=== PATIENT | female | born 1985 | race Caucasian/White ===

== ENCOUNTER 2020-12-11 08:47 | Emergency (ER) | payer SELFPAY ==
[~2020-12-11] VITALS: Ht 162.6 cm; Wt 59.5 kg
[2020-12-11 08:58] VITALS: BP 111/72
--- NOTE | 2020-12-11 09:12 | PHYS DOC ---
Past Medical History Past Medical History: Other Additional Past Medical Histor: PERIDONTAL DISEASE Past Surgical History: No Surgical History Smoking Status: Current Every Day Smoker Alcohol Use: Heavy Drug Use: Methamphetamine General Adult EDM: Chief Complaint: Drug Abuse HPI: HPI: Patient is a 35 year old female who was brought in by EMS after she was found sleeping outside a [facility] in [place], [place]. Patient did not have shoes or a ride and had no memory of how she got there. EMS reported patient she was alert and oriented X 1. Patient requested to be transported to [facility] for evaluation. Patient reports smoking methamphetamines yesterday and denies IV drug use. Upon arrival in the ED patient is alert and oriented x 3 and has no complaints. Patient denies chest pain, SOB, nausea or vomiting. Patient reports no trauma and has no focal deficits. Patient says she has never sought treatment for her methamphetamine addiction and currently is not interested in seeking treatment. Denies . Review of Systems: Review of Systems: Constitutional: Denies fever or chills Eyes: Denies redness or eye pain HENT: Denies nasal congestion or sore throat Respiratory: Denies cough or shortness of breath Cardiovascular: Denies chest pain or palpitations GI: Denies abdominal pain, nausea, or vomiting : Denies dysuria or hematuria Musculoskeletal: Denies back pain or joint pain Integument: Denies rash or skin lesions Neurologic: Denies headache, focal weakness or sensory changes Complete systems were reviewed and found to be within normal limits, except as documented in this note. Heart Score: C/O Chest Pain: N/A Allergies: Allergies: Allergies Coded Allergies Type Severity Reaction Last Updated Verified Penicillins Allergy Intermediate 07/08/15 Yes Physical Exam: PE: Constitutional: Well developed, well nourished, no acute distress, non-toxic appearance HENT: Normocephalic, atraumatic Eyes: EOMI, conjunctiva normal, no discharge Neck: Normal range of motion, no tenderness, supple Lungs & Thorax: No respiratory distress, equal chest rise and fall Abdomen: Soft, no tenderness Skin: Warm, dry, no erythema, no rash Extremities: No tenderness, ROM intact, no edema Neurologic: Alert and oriented X 3, normal motor function, normal sensory function, no focal deficits noted Psychologic: Affect normal, judgment normal Current Patient Data: Vital Signs: Vital Signs Date Time Temp Pulse Resp B/P (MAP) Pulse Ox O2 Delivery O2 Flow Rate FiO2 12/11/20 08:58 71 18 111/72 (75) 100 Room Air EKG: EKG: [] Radiology/Procedures: Radiology/Procedures: [] Course & Med Decision Making: Course & Med Decision Making Patient is a 35 year old female brought in by EMS after she was found outside a [facility] with no memory of how she got there. She reports using meth last night. Patient was A&O x 1 when examined by EMS and requested to be brought to [facility]. In the ED patient is A&O x 3. Patient reports no deficits and has no physical complaints. Patient denies seeking treatment for meth addiction and currently not seeking treatment. Patient counseled on treatment options and given information on resources available. Patient stable for discharge with outpatient follow-up with PCP/Drug rehab. Discussed findings and plan with patient, who acknowledges understanding and agreement. Patient able to walk with steady gait. Dragon Disclaimer: Lukas Disclaimer: This electronic medical record was generated, in whole or in part, using a voice recognition dictation system. Departure Departure Impression: Primary Impression: Methamphetamine abuse Disposition: 01 HOME / SELF CARE / HOMELESS Condition: STABLE Referrals: NO PCP (PCP) Patient Instructions: Alcohol and Drug Addiction, Finding Treatment, Methamphetamine Abuse, Complications Additional Instructions: Please call [facility] at to seek help for your mental health and/or drug/alcohol abuse. BETTINA GUERRERO DO Dec 11, 2020 09:12
== END 2020-12-11 09:25 | disposition home or self-care (01) ==
LOC: ER 08:47
DX: F15.10 Other stimulant abuse, uncomplicated (principal); F10.20 Alcohol dependence, uncomplicated; Y90.9 Presence of alcohol in blood, level not specified; F17.200 Nicotine dependence, unspecified, uncomplicated; Z88.0 Allergy status to penicillin
CPT/HCPCS: 99283

== ENCOUNTER 2021-09-12 08:29 | Emergency (ER) | payer MEDICAID ==
[~2021-09-12] VITALS: Ht 160 cm; Wt 65.0 kg
[2021-09-12] MEDS ORDERED: MULTIVIT INFUSN,ADULT 4,VIT K 10 ML, THIAMINE INJ 100 MG, FOLIC ACID INJ 1 MG in IV NOR... IV ONE (09:00)
[2021-09-12 09:13] LABS: BASO # 0.1 x10^3/uL (0.0-0.2); BASO % 1 % (0-3); EOS % 0 % (0-3); HEMATOCRIT 40.2 % (36.0-47.0); HEMOGLOBIN 13.3 g/dL (12.0-15.5); LYMPH # 1.8 x10^3/uL (1.0-4.8); LYMPH % 11 % (24-48); MEAN CORPUSCULAR HEMOGLOBIN 27 pg (25-35); MEAN CORPUSCULAR HGB CONC 33 g/dL (31-37); MEAN CORPUSCULAR VOLUME 82 fL (79-100); MONO # 0.9 x10^3/uL (0.0-1.1); MONO % 6 % (0-9); NEUT # 13.3 x10^3/uL (1.8-7.7); NEUT % 82 % (31-73); PLATELET COUNT 464 x10^3/uL (140-400); RED BLOOD COUNT 4.92 x10^6/uL (3.50-5.40); RED CELL DISTRIBUTION WIDTH 15.9 % (11.5-14.5); WHITE BLOOD COUNT 16.1 x10^3/uL (4.0-11.0)
[2021-09-12 09:38] LABS: ALBUMIN 4.3 g/dL (3.4-5.0); ALBUMIN/GLOBULIN RATIO 1.2 (1.0-1.7); CALCIUM 10.2 mg/dL (8.5-10.1); CREATININE 0.8 mg/dL (0.6-1.0); GFR 82.1; POTASSIUM 4.6 mmol/L (3.5-5.1); TOTAL BILIRUBIN 1.2 mg/dL (0.2-1.0)
[2021-09-12 10:04] VITALS: BP 133/79
[2021-09-12 11:00] LABS: BARBITURATES NEG (NEG); BENZODIAZEPINES NEG (NEG); CANNABINOIDS POS (NEG); COCAINE NEG (NEG); METHADONE NEG (NEG); OPIATES NEG (NEG); PHENCYCLIDINE NEG (NEG)
[2021-09-12 11:01] LABS: AMPHETAMINE/METHAMPHETAMINE POS (NEG)
[2021-09-12 11:21] LABS: BACTERIA,URINE FEW /HPF (0-FEW); RBC,URINE 0 /HPF (0-2)
--- NOTE | 2021-09-12 12:00 | PHYS DOC ---
Past Medical History Past Medical History: Other Additional Past Medical Histor: PERIDONTAL DISEASE Past Surgical History: No Surgical History Smoking Status: Current Every Day Smoker Alcohol Use: None Drug Use: Methamphetamine General Adult EDM: Chief Complaint: ALTERED MENTAL STATUS HPI: HPI: Patient is a 36 year old male who presents with history of methamphetamine abus e as well as alcohol abuse presents for confusion according to EMS presenting without any specific complaints. Patient was examined by myself immediately after patient arrived and patient was not confused, patient was ANO x4. Patient stated that she did not know why she was picked up. She stated that she did use methamphetamine today. She states that she feels well and would like to go home. Review of Systems: Review of Systems: Constitutional: Denies fever or chills. [] Eyes: Denies change in visual acuity. [] HENT: Denies nasal congestion or sore throat. [] Respiratory: Denies cough or shortness of breath. [] Cardiovascular: Denies chest pain or edema. [] GI: Denies abdominal pain, nausea, vomiting, bloody stools or diarrhea. [] : Denies dysuria. [] Musculoskeletal: Denies back pain or joint pain. [] Integument: Denies rash. [] Neurologic: Denies headache, focal weakness or sensory changes. [] Endocrine: Denies polyuria or polydipsia. [] Lymphatic: Denies swollen glands. [] Psychiatric: Denies depression or anxiety. [] Heart Score: C/O Chest Pain: No Risk Factors: Risk Factors: DM, Current or recent (<one month) smoker, HTN, HLP, family history of CAD, obesity. Risk Scores: Score 0 - 3: 2.5% MACE over next 6 weeks - Discharge Home Score 4 - 6: 20.3% MACE over next 6 weeks - Admit for Clinical Observation Score 7 - 10: 72.7% MACE over next 6 weeks - Early Invasive Strategies Current Medications: Current Medications Medications (Trade) Dose Ordered Sig/Gomez Start Time Stop Time Status Last Admin Dose Admin Multivitamins 10 ml/Thiamine HCl 100 mg/Folic Acid 1 mg/Sodium Chloride 1,011.2 ml @ 1,000.088 mls/hr 1X ONCE 09/12/21 09:00 09/12/21 10:00 DC 09/12/21 09:34 1,000.088 MLS/HR Allergies: Allergies: Allergies Coded Allergies Type Severity Reaction Last Updated Verified Penicillins Allergy Intermediate 09/12/21 Yes Physical Exam: PE: Constitutional: Well developed, well nourished, no acute distress, non-toxic appearance. [] HENT: Normocephalic, atraumatic, bilateral external ears normal, oropharynx moist, no oral exudates, nose normal. Poor dentition [] Eyes: PERRLA, EOMI, conjunctiva normal, no discharge. [] Neck: Normal range of motion, no tenderness, supple, no stridor. [] Cardiovascular:Heart rate regular rhythm, no murmur [] Lungs & Thorax: Bilateral breath sounds clear to auscultation [] Abdomen: Bowel sounds normal, soft, no tenderness, no masses, no pulsatile masses. [] Skin: Warm, dry, no erythema, no rash. [] Back: No tenderness, no CVA tenderness. [] Extremities: No tenderness, no cyanosis, no clubbing, ROM intact, no edema. [] Neurologic: Alert and oriented X 3, normal motor function, normal sensory function, no focal deficits noted. [] Psychologic: Affect normal, judgement normal, mood normal. [] Current Patient Data: Labs: Laboratory Tests Test 09/12/21 09:04 09/12/21 10:29 09/12/21 10:45 White Blood Count 16.1 x10^3/uL (4.0-11.0) H Red Blood Count 4.92 x10^6/uL (3.50-5.40) Hemoglobin 13.3 g/dL (12.0-15.5) Hematocrit 40.2 % (36.0-47.0) Mean Corpuscular Volume 82 fL (79-100) Mean Corpuscular Hemoglobin 27 pg (25-35) Mean Corpuscular Hemoglobin Concent 33 g/dL (31-37) Red Cell Distribution Width 15.9 % (11.5-14.5) H Platelet Count 464 x10^3/uL (140-400) H Neutrophils (%) (Auto) 82 % (31-73) H Lymphocytes (%) (Auto) 11 % (24-48) L Monocytes (%) (Auto) 6 % (0-9) Eosinophils (%) (Auto) 0 % (0-3) Basophils (%) (Auto) 1 % (0-3) Neutrophils # (Auto) 13.3 x10^3/uL (1.8-7.7) H Lymphocytes # (Auto) 1.8 x10^3/uL (1.0-4.8) Monocytes # (Auto) 0.9 x10^3/uL (0.0-1.1) Eosinophils # (Auto) 0.0 x10^3/uL (0.0-0.7) Basophils # (Auto) 0.1 x10^3/uL (0.0-0.2) Platelet Estimate Pending Sodium Level 135 mmol/L (136-145) L Potassium Level 4.6 mmol/L (3.5-5.1) Chloride Level 96 mmol/L (98-107) L Carbon Dioxide Level 24 mmol/L (21-32) Anion Gap 15 (6-14) H Blood Urea Nitrogen 16 mg/dL (7-20) Creatinine 0.8 mg/dL (0.6-1.0) Estimated GFR (Cockcroft-Gault) 82.1 BUN/Creatinine Ratio 20 (6-20) Glucose Level 89 mg/dL (70-99) Calcium Level 10.2 mg/dL (8.5-10.1) H Magnesium Level 2.0 mg/dL (1.8-2.4) Total Bilirubin 1.2 mg/dL (0.2-1.0) H Aspartate Amino Transferase (AST) 25 U/L (15-37) Alanine Aminotransferase (ALT) 50 U/L (14-59) Alkaline Phosphatase 163 U/L (46-116) H Ammonia 20 mcmol/L (11-34) Creatine Kinase 459 U/L (26-192) H Troponin I High Sensitivity 7 ng/L (4-50) Total Protein 8.0 g/dL (6.4-8.2) Albumin 4.3 g/dL (3.4-5.0) Albumin/Globulin Ratio 1.2 (1.0-1.7) Thyroid Stimulating Hormone (TSH) 0.787 uIU/mL (0.358-3.74) Ethyl Alcohol Level < 10 mg/dL (0-10) POC Urine HCG, Qualitative Hcg negative (Negative) Urine Collection Type Unknown Urine Color (Auto) Yellow Urine Turbidity Hazy Urine pH (Auto) 5.0 (<5.0-8.0) Urine Specific [place] 1.019 (1.000-1.030) Urine Protein (Auto) Negative mg/dL (Negative) Urine Glucose (Auto)(UA) Negative mg/dL (Negative) Urine Ketones (Auto) 80 mg/dL (Negative) Urine Blood (Auto) Negative (Negative) Urine Nitrite (Auto) Negative (Negative) Urine Bilirubin (Auto) Negative (Negative) Urine Urobilinogen (Auto) Normal mg/dL (Normal) Urine Leukocyte Esterase (Auto) Small (Negative) Urine RBC 0 /HPF (0-2) Urine WBC 5-10 /HPF (0-4) Urine Squamous Epithelial Cells Many /LPF Urine Bacteria Few /HPF (0-FEW) Urine Mucus Mod /LPF Urine Opiates Screen Neg (NEG) Urine Methadone Screen Neg (NEG) Urine Barbiturates Neg (NEG) Urine Phencyclidine Screen Neg (NEG) Urine Amphetamine/Methamphetamine Pos (NEG) Urine Benzodiazepines Screen Neg (NEG) Urine Cocaine Screen Neg (NEG) Urine Cannabinoids Screen Pos (NEG) Urine Ethyl Alcohol Neg (NEG) Laboratory Tests 09/12/21 09:04 Laboratory Tests 09/12/21 09:04 Vital Signs: Vital Signs Date Time Temp Pulse Resp B/P (MAP) Pulse Ox O2 Delivery O2 Flow Rate FiO2 09/12/21 10:04 79 24 133/79 (97) 98 Room Air 09/12/21 08:37 97.9 97.9 EKG: EKG: Sinus rhythm Radiology/Procedures: Radiology/Procedures: [] Impression: 36-year-old female with methamphetamine abuse Course & Med Decision Making: Course & Med Decision Making Pertinent Labs and Imaging studies reviewed. (See chart for details) Patient was administered 1 L of a banana bag, labs were ordered and resulted. Patient had leukocytosis however this is likely due to methamphetamine abuse. She stated that she felt well and wanted to go home. Patient is not exhibiting any signs or symptoms of confusion. Patient feels well, ambulating well. She consumed a diet while here. She is asymptomatic. She tested positive for methamphetamines, she was advised to stop using methamphetamine. She has no interest in stopping. All questions were answered prior to discharge, patient was stable at the time of discharge. Dragon Disclaimer: Dragon Disclaimer: This electronic medical record was generated, in whole or in part, using a voice recognition dictation system. Departure Departure Impression: Primary Impression: Methamphetamine abuse Additional Impressions: Substance abuse Dehydration, mild Disposition: 01 HOME / SELF CARE / HOMELESS Condition: GOOD Patient Instructions: Methamphetamine Abuse, Complications Additional Instructions: Follow-up with your primary care physician in 1 to 2-week I would advise you stop using methamphetamine. Stay hydrated, drink plenty of fluids JOSE E ORTIZ MD Sep 12, 2021 12:00
[2021-09-12 12:16] LABS: % BANDS 1 % (0-9); % BASOS 1 % (0-3); % LYMPHS 11 % (24-48); % MONOS 8 % (0-10); % SEGS 79 % (35-66); PLT ESTIMATE INCREASED (ADEQUATE)
--- NOTE | 2021-09-13 10:14 | EKG ---
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
== END 2021-09-12 11:58 | disposition home or self-care (01) ==
LOC: ER 08:29
DX: F15.10 Other stimulant abuse, uncomplicated (principal); F10.10 Alcohol abuse, uncomplicated; Y90.9 Presence of alcohol in blood, level not specified; R41.0 Disorientation, unspecified; E86.0 Dehydration; F17.200 Nicotine dependence, unspecified, uncomplicated
CPT/HCPCS: 36415; 80053; 80307; 81001; 81025; 82140; 82550; 83735; 84443; 84484; 85007; 85025; 93005; 96365; 99284; G0480; J3411; J3490; J7030

== ENCOUNTER 2021-09-21 11:56 | Emergency (ER) | payer MEDICAID ==
[~2021-09-21] VITALS: Ht 162.6 cm; Wt 64.5 kg
[2021-09-21] MEDS ORDERED: LIDOCAINE 2% Multi-Dose 20 ML VIAL. IJ ONE (12:45)
--- NOTE | 2021-09-21 13:06 | PHYS DOC ---
Past Medical History Past Medical History: Other Additional Past Medical Histor: PERIDONTAL DISEASE (NICHOL TOLEDO) Past Surgical History: No Surgical History (NICHOL TOLEDO) Smoking Status: Current Every Day Smoker Alcohol Use: None Drug Use: Methamphetamine (NICHOL TOLEDO) General Adult EDM: Chief Complaint: FINGER INJURY HPI: HPI: Patient is a 36 year old female who presents with 2-day history of right digit 3 pain. Patient states that she bites her nails, and 2 days ago began having merary n. The finger is now swollen, extremely painful and hot to the touch. Patient has no other complaints at this time. (NICHOL TOLEDO) Review of Systems: Review of Systems: ROS negative or noncontributory except as mentioned in HPI. (NICHOL TOLEDO) Heart Score: C/O Chest Pain: No (NICHOL TOLEDO) Current Medications: Current Medications Medications (Trade) Dose Ordered Sig/Gomez Route PRN Reason Start Time Stop Time Status Last Admin Dose Admin Lidocaine HCl (Lidocaine 2% 20ml Vial) 20 ml 1X ONCE IJ 09/21/21 12:45 09/21/21 12:49 DC 09/21/21 12:45 Tramadol HCl (Ultram) 50 mg 1X ONCE PO 09/21/21 14:15 09/21/21 14:16 DC 09/21/21 14:17 Diphtheria/ Tetanus/Acell Pertussis (Boostrix) 0.5 ml ONCE ONCE VAX IM 09/21/21 14:45 09/21/21 14:35 DC 09/21/21 14:19 (NICHOL TOLEDO) Allergies: Allergies: Allergies Coded Allergies Type Severity Reaction Last Updated Verified Penicillins Allergy Intermediate 09/21/21 Yes (NICHOL TLOEDO) Physical Exam: PE: Constitutional: Disheveled, thin. HENT: Normocephalic, atraumatic, bilateral external ears normal. Eyes: EOMI, conjunctiva normal, no discharge. Neck: Normal range of motion, no stridor. Skin: Warm, dry, no erythema, no rash. Extremities: Right digit 3 exquisitely tender to touch and swollen, fluctuance appreciated distal and lateral to nailbed. Extremities otherwise no cyanosis, no clubbing, ROM intact. Neurologic: Alert and oriented x4, steady and symmetrical upright gait, no focal deficits noted. (NICHOL TOLEDO) Current Patient Data: Vital Signs: Vital Signs Date Time Temp Pulse Resp B/P (MAP) Pulse Ox O2 Delivery O2 Flow Rate FiO2 09/21/21 14:30 96 20 131/84 (100) 97 09/21/21 14:17 18 98 Room Air 09/21/21 12:00 97.6 91 16 124/79 (94) 96 97.6 (NICHOL TOLEDO) Course & Med Decision Making: Course & Med Decision Making Pertinent Labs and Imaging studies reviewed. (See chart for details) (NICHOL TOLEDO) Dragon Disclaimer: Dragon Disclaimer: This electronic medical record was generated, in whole or in part, using a voice recognition dictation system. (NICHOL TOLEDO) Incision and Drainage Indication: Paronychia right digit 3 Procedure: The patient was positioned appropriately. Local anesthesia was digit block using 2% lidocaine plain. An incision was then made over the apex of the lesion and 2-3 cc purulent material was expressed. Wound was dressed with bacitracin and gauze. The patients tetanus status was updated in the department. Additional information: The patient tolerated the procedure well. Complications: none. (NICHOL TOLEDO) Departure Departure Impression: Primary Impression: Paronychia of finger of right hand Disposition: 01 HOME / SELF CARE / HOMELESS Condition: IMPROVED Referrals: NO PCP (PCP) Patient Instructions: Paronychia, [id number] Additional Instructions: EMERGENCY DEPARTMENT GENERAL DISCHARGE INSTRUCTIONS Thank you for coming to [facility] Emergency Department (ED) today and trusting us with you care. We trust that you had a positive experience in our Emergency Department. If you wish to speak to the department management, you may call the director at . YOUR FOLLOW UP INSTRUCTIONS ARE FOLLOWS: 1. Follow up with your primary care doctor. If you do not have a primary doctor, please ask for a resource list of physicians or clinics that may be able to assist you with follow up care. 2. The emergency provider has interpreted your imaging studies, if any were ordered. The radiology certified medical coding specialist also reviewed them. If there is a change in the findings, you will be notified in 48 hours when at all possible. 3. If a lab test or culture has been done, your results will be reviewed and you will be notified if you need a change in treatment. 4. Follow instructions verbalized to you and refer to the printouts if needed. ADDITIONAL INSTRUCTIONS AND INFORMATION: 1. Your care today has been supervised by a physician who is specially trained in emergency care. Many problems require more than one evaluation for a comp lete diagnosis and treatment. We recommend that you schedule your follow up appointment as recommended to ensure complete treatment of you illness or injury. If you are unable to obtain follow up care and continue to have a problem, or if your condition worsens, we recommend that you return to the ED. 2. We are not able to safely determine your condition over the phone nor are we able to give sound medical advice over the phone. For these safety reasons, if you call for medical advice we will ask you to come to the ED for further evaluation. 3. If you have any questions regarding these discharge instructions please call the ED at . SAFETY INFORMATION: In the interest of safety, wellness, and injury prevention; we encourage you to wear your seat belt, if you smoke; quite smoking, and we encourage family to use a protective helmet for bicycling and other sporting events that present an increased risk for head injury. IF YOUR SYMPTOMS WORSEN OR NEW SYMPTOMS DEVELOP, OR YOU HAVE CONCERNS ABOUT YOUR CONDITION; OR IF YOUR CONDITION WORSENS WHILE YOU ARE WAITING FOR YOUR FOLLOW UP APPOINTMENT; EITHER CONTACT YOUR PRIMARY CARE DOCTOR, THE PHYSICIAN WHOSE NAME AND NUMBER YOU WERE GIVEN, OR RETURN TO THE ED IMMEDIATELY. Scripts Sulfamethoxazole/Trimethoprim (BACTRIM DS TABLET) 1 Each Tablet 1 TAB PO BID for 10 Days, #20 TAB 0 Refills Prov: NICHOL TOLEDO 09/21/21 Attending Signature I have participated in the care of this patient and I have reviewed and agree with all pertinent clinical information above including history, exam, and recommendations. (ALEAH GREEN DO) NICHOL TOLEDO Sep 21, 2021 13:06 ALEAH GREEN DO Sep 21, 2021 17:04
[2021-09-21] MEDS ORDERED: SULF1TAB24 PO (14:02)
[2021-09-21] MEDS ORDERED: traMADol 50 MG TABLET PO ONE (14:15)
[2021-09-21 14:30] VITALS: BP 131/84
[2021-09-21] MEDS ORDERED: DIPHTH,PERTUSS(ACELL),TET TOX 0.5 ML DISP.SYRIN. VAX IM ONE (14:45)
== END 2021-09-21 14:34 | disposition home or self-care (01) ==
LOC: ER 11:56
DX: L03.011 Cellulitis of right finger (principal); F17.200 Nicotine dependence, unspecified, uncomplicated; Z88.0 Allergy status to penicillin
CPT/HCPCS: 10060; 90471; 90715; 99283-25